=== PATIENT | female | born 1960 | race Caucasian/White ===

== ENCOUNTER 2017-08-11 14:00 | Outpatient (CLI) | payer BC ==
--- NOTE | 2017-08-12 11:50 | XRAY Report ---
RIGHT SHOULDER, THREE VIEWS: 08/11/2017 HISTORY: Fall several weeks ago, pain. Three views of the right shoulder interpreted without comparisons. There is no evidence of fracture, bone destruction, malalignment, soft tissue calcification or other abnormality. Included portions o f the right hemithorax are unremarkable. IMPRESSION: NEGATIVE THREE VIEW RIGHT SHOULDER. JOB #: [id number] EXT JOB #:[id number]
== END 2017-08-11 14:01 | disposition home or self-care (01) ==
LOC: DI 14:00
PROVIDERS: ATTEND Internal Medicine
DX: M25.511 Pain in right shoulder (principal)

== ENCOUNTER 2017-09-13 11:01 | Outpatient (CLI) | payer BC ==
[2017-09-13 12:26] LABS: BASOPHILS % (AUTO) 0.4 %; EOSINOPHILS # (AUTO) 0.1 10^3/uL (0.0-0.7); EOSINOPHILS % (AUTO) 1.5 %; HGB - HEMOGLOBIN 11.8 g/dL (12.0-16.0); LYMPHOCYTES # (AUTO) 1.4 10^3/uL (1.5-3.5); LYMPHOCYTES % (AUTO) 20.7 %; MEAN CORPUSCULAR HEMOGLOBIN 31.6 pg (27.0-31.0); MEAN CORPUSCULAR HGB CONC 33.8 g/dL (32.0-36.0); MEAN CORPUSCULAR VOLUME 93.2 fL (81.0-99.0); MEAN PLATELET VOLUME 8.5 fL (7.9-10.8); MONOCYTES # (AUTO) 0.3 10^3/uL (0.0-1.0); NEUTROPHILS % (AUTO) 73.4 %; PLT - PLATELET COUNT 274 10^3/uL (130-450); RED BLOOD COUNT 3.74 10^6/uL (4.20-5.40); RED CELL DISTRIBUTION WIDTH 14.5 % (12.0-15.0); WHITE BLOOD COUNT 6.8 x10^3/uL (4.8-10.8)
[2017-09-13 12:34] LABS: CHOL/HDL RATIO 5.2 (<4.4); CHOLESTEROL 196 mg/dL; GLUCOSE 92 mg/dL (70-100); HDL CHOLESTEROL 38 mg/dL; LDL CHOLESTEROL,CALCULATED 136 mg/dL; LDL/HDL RATIO 3.6 (<4.4); VLDL CHOLESTEROL 22 mg/dL
[2017-09-13 12:40] LABS: HB2 TOTAL 12.6 g/dL; HEMOGLOBIN A1C 0.44 g/dL; HEMOGLOBIN A1C % 5.3 % (4.6-6.2)
== END 2017-09-13 11:02 | disposition home or self-care (01) ==
LOC: LAB 11:01
PROVIDERS: ATTEND Obstetrics & Gynecology
DX: Z13.0 Encounter for screening for diseases of the blood and blood-forming organs and certain disorders involving the immune mechanism (principal); Z13.220 Encounter for screening for lipoid disorders; N92.1 Excessive and frequent menstruation with irregular cycle
CPT/HCPCS: 36415; 80061; 81599; 82627; 82947; 83036; 83721; 84402; 85025

== ENCOUNTER 2017-09-16 15:07 | Outpatient (CLI) | payer BC ==
--- NOTE | 2017-09-17 11:51 | Ultrasound Report ---
DATE OF SERVICE: 09/16/2017 PELVIC ULTRASOUND: 09/16/2017 CLINICAL INDICATION: Excessive menstruation. TECHNIQUE: Transabdominal pelvic ultrasound performed for global evaluation. Transvaginal pelvic ultrasound performed for detailed evaluation. Real-time scanning performed and static images obtained. FINDINGS: The uterus is anteverted, measuring 9.1 x 5.0 x 4.2 cm. The endometrial echo complex measures 8 mm, and there is an echogenic 1.5 x 0.8 x 0.6 cm nodule with vascularity within the endometrium, suspicious for a polyp. An 1 cm fundal intramural calcification is noted, compatible with a degenerated fibroid. The right ovary measures 3.7 x 1.8 x 1.8 cm, and demonstrates a follicle. The left ovary measures 2.4 x 1.5 x 1.4 cm, and appears unremarkable. No free fluid is present. IMPRESSION: LIKELY ENDOMETRIAL POLYP. TD: 09/17/2017 12:50
== END 2017-09-16 15:08 | disposition home or self-care (01) ==
LOC: DI 15:07
PROVIDERS: ATTEND Obstetrics & Gynecology
DX: N92.1 Excessive and frequent menstruation with irregular cycle (principal)
CPT/HCPCS: 76830; 76856

== ENCOUNTER 2017-10-12 14:50 | Outpatient (CLI) | payer BC ==
--- NOTE | 2017-10-13 10:23 | DEXA Report ---
DEXA SCAN: 10/12/2017 CLINICAL INDICATION: Postmenopausal. TECHNIQUE: Dual energy x-ray absorptiometry (DXA) was performed on a [email or web address] system. Regions measured are the AP spine, femoral neck, and, if needed, forearm. COMPARISON: None. In accordance with the International Society for Clinical Densitometry (ISCD) guidelines, data from previous exams may be reanalyzed using current recommendations and techniques. This is done to allow a more accurate basis for comparison with the current study. FINDINGS: The data for the lumbar spine is as follows: REGION BMD (g/cm/cm) T-SCORE Z-SCORE L1 --- --- --- L2 1.088 -0.9 -1.2 L3 1.205 0.0 -0.2 L4 1.161 -0.3 -0.6 TOTAL L2-L4 1.152 -0.4 -0.7 NOTE: All evaluable vertebrae are used for classification. The data for the hip is as follows: REGION BMD (g/cm/cm) T-SCORE Z-SCORE Neck 1.040 0.0 0.3 TOTAL 1.106 0.8 0.7 NOTE: The femoral neck or total proximal femur, whichever is lowest, is used for classification. IMPRESSION: THE WHO CLASSIFICATION BASED ON THE INTERNATIONAL REFERENCE STANDARD IS NORMAL. THE FRACTURE RISK IS NOT INCREASED. RECOMMENDATION: Patients with diagnosis of osteoporosis or osteopenia should have regular bone mineral density assessment. For those eligible for Medicare, routine testing is allowed once every 2 years. Testing frequency can be increased for patients who have rapidly progressing disease or for those who are receiving medical therapy to restore bone mass. COMMENT: World Health Organization (WHO) definitions for osteoporosis and osteopenia: NORMAL BMD: T-score at 1.0 or higher, fracture risk is low. OSTEOPENIA BMD: T-score between 1.0 and -2.5, fracture risk is increased. OSTEOPOROSIS BMD: T-score at 2.5 or lower, fracture risk high. National Osteoporosis Foundation recommends: 1. Obtain adequate dietary calcium (at least 1200 mg per day) and vitamin D (400 -800 international units per day). 2. Participate, as appropriate, in regular weightbearing and muscle- strengthening exercise. 3. Avoid tobacco use and reduce alcohol and caffeine intake. 4. For more detailed information see the website at www.NOF.org. TD: 10/13/2017 09:16 JOSEF
== END 2017-10-12 14:51 | disposition home or self-care (01) ==
LOC: DI 14:50
PROVIDERS: ATTEND Internal Medicine
DX: Z13.820 Encounter for screening for osteoporosis (principal)
CPT/HCPCS: 77080

== ENCOUNTER 2017-10-12 14:51 | Outpatient (CLI) | payer BC ==
--- NOTE | 2017-10-13 17:04 | Mammography Report ---
DIGITAL SCREENING MAMMOGRAM: 10/12/2017 CLINICAL INDICATION: A 57-year-old with a history of late childbearing, for screening. COMPARISON: 07/2016, 01/2016, 04/2008. TECHNIQUE: Routine CC and MLO projections were obtained of the breasts. FINDINGS: Scattered fibroglandular tissue is present within the breasts. There are no dominant masses, suspicious microcalcifications, or secondary signs of malignancy. In comparison to the previous studies, there are no significant changes. ASSESSMENT: NO MAMMOGRAPHIC EVIDENCE OF MALIGNANCY. NO SIGNIFICANT INTERVAL CHANGES. RECOMMENDATION: Screening mammography is recommended annually. BIRADS category 1 - negative. STANDARD QUALIFYING STATEMENTS: 1. This examination was reviewed with the aid of Computed-Aided Detection (CAD). 2. A negative or benign imaging report should not delay biopsy if clinically suspicious findings are present. Consider surgical consultation if warranted. More than 5% of cancers are not identified by imaging. 3. Dense breasts may obscure an underlying neoplasm. TD: 10/13/2017 17:02
== END 2017-10-12 14:52 | disposition home or self-care (01) ==
LOC: DI 14:51
PROVIDERS: ATTEND Internal Medicine
DX: Z12.31 Encounter for screening mammogram for malignant neoplasm of breast (principal)
CPT/HCPCS: 77067

== ENCOUNTER 2018-03-14 14:13 | Outpatient (CLI) | payer BC ==
[2018-03-14 14:31] LABS: BASOPHILS # (AUTO) 0.1 10^3/uL (0.0-0.1); BASOPHILS % (AUTO) 0.8 %; EOSINOPHILS # (AUTO) 0.1 10^3/uL (0.0-0.7); EOSINOPHILS % (AUTO) 1.2 %; HGB - HEMOGLOBIN 12.8 g/dL (12.0-16.0); LYMPHOCYTES % (AUTO) 24.3 %; MEAN CORPUSCULAR HEMOGLOBIN 31.8 pg (27.0-31.0); MEAN CORPUSCULAR HGB CONC 33.2 g/dL (32.0-36.0); MEAN CORPUSCULAR VOLUME 95.9 fL (81.0-99.0); MEAN PLATELET VOLUME 8.4 fL (7.9-10.8); MONOCYTES # (AUTO) 0.4 10^3/uL (0.0-1.0); MONOCYTES % (AUTO) 4.2 %; NEUTROPHILS # (AUTO) 5.9 10^3/uL (1.5-6.6); NEUTROPHILS % (AUTO) 69.5 %; PLT - PLATELET COUNT 316 10^3/uL (130-450); RED BLOOD COUNT 4.01 10^6/uL (4.20-5.40); WHITE BLOOD COUNT 8.4 x10^3/uL (4.8-10.8)
[2018-03-14 14:32] LABS: BILIRUBIN,URINE NEGATIVE (NEGATIVE); GLUCOSE, URINE (UA) NEGATIVE (NEGATIVE); KETONES,URINE (UA) NEGATIVE (NEGATIVE); LEUKOCYTE ESTERASE, URINE SMALL (NEGATIVE); NITRITE,URINE NEGATIVE (NEGATIVE); OCCULT BLOOD,URINE NEGATIVE (NEGATIVE); PH,URINE 6.5 PH (5.0-7.5); PROTEIN,URINE NEGATIVE (NEGATIVE); UROBILINOGEN,URINE 0.2 (NORMAL) E.U./dL (NORMAL)
[2018-03-14 14:35] LABS: CLARITY,URINE CLEAR (CLEAR)
[2018-03-14 14:41] LABS: ALBUMIN 4.1 g/dL (3.2-5.5); ALBUMIN/GLOBULIN RATIO 1.2 (1.0-2.2); BILIRUBIN,TOTAL 0.6 mg/dL (0.2-1.0); CALCIUM 8.8 mg/dL (8.5-10.3); CREATININE 0.6 mg/dL (0.4-1.0); TOTAL PROTEIN 7.5 g/dL (6.7-8.2)
== END 2018-03-14 14:14 | disposition home or self-care (01) ==
LOC: LAB 14:13
PROVIDERS: ATTEND Obstetrics & Gynecology
DX: Z01.812 Encounter for preprocedural laboratory examination (principal); N95.0 Postmenopausal bleeding
CPT/HCPCS: 36415; 80053; 81003; 85025

== ENCOUNTER 2018-03-16 10:25 | Day surgery (SDC) | payer BC ==
--- NOTE | 2018-03-14 15:10 | PREOP HISTORY & PHYSICAL ---
DATE OF SERVICE: 03/14/2018 Physician: Richie Willingham MD PREOPERATIVE DIAGNOSES 1. Thickened endometrium with postmenopausal bleeding. 2. Nondiagnostic endometrial biopsy. INTENDED PROCEDURE: Hysteroscopy with MyoSure excision of presumed polyp. HISTORY OF PRESENT ILLNESS: Patient is a 57-year-old , 3, para 2-0-1-2, woman who never feels like she ever sees menstruating. She continues to have unscheduled uterine bleeding. She is morbidly obese with a history of gestational diabetes and findings suggestive of androgen excess and probable insulin resistance. She is at increased risk of hyperplastic or malignant changes of the endometrium. Endometrial biopsy was nondiagnostic. Tissue diagnosis is required. Ultrasound documents an 8 mm stripe with an 8 mm complex and increased vascularity. A polyp is first and differential diagnosis. Additionally, there is a 1 cm intramural calcified fibroid. There is no ovarian pathology. Her last Pap smear was in September 2017 and was non-dysplastic with negative HPV. PAST MEDICAL HISTORY: Includes Benjamin's disease. PAST SURGICAL HISTORY: Tonsillectomy, 1967. ALLERGIES: NO KNOWN DRUG ALLERGIES. MEDICATIONS: Reference medical history. FAMILY HISTORY: No gynecologic malignancy noted. Positive for hypertension and CAD. SOCIAL HISTORY: . No organized exercise and diet regimen; no alcohol consumption, drug consumption, or smoking. OCCUPATION: Currently a housewife, but a Bachelor's in fine arts and graphic design. REVIEW OF SYSTEMS: No recent illnesses, fevers, or chills. No easy bleeding tendencies. PHYSICAL EXAMINATION GENERAL: Obese, cooperative. HEENT: Supple neck. Currently no thyromegaly, tenderness, or nodularity. LUNGS: Clear. HEART: Cardiac exam regular. No murmur, no gallop. ABDOMEN: Obese with pannus. BREASTS: Deferred. EXTERNAL GENITALIA: Male hair distribution. No lesions. VAGINA: Grade 1- cystorectocele. No incontinence on cough. CERVIX: No cervicitis or cervical motion tenderness. UTERUS: Difficult to evaluate due to body habitus, but felt to be enlarged, nontender. ADNEXA: Difficult to evaluate due to body habitus, nontender. No enlargement suspect. MUSCULOSKELETAL: Moves all 4 extremities well. No limitations in range of motion. NEUROLOGIC: Grossly intact. Cranial nerves intact. SKIN: No obvious open lesions. PSYCHIATRIC: Cooperative, not anxious or appearing depressed. PRE-OP LABORATORY DATA: Pending. ASSESSMENT: Patient is a 57-year-old woman who has had longstanding postmenopausal bleeding, most likely due to estrogen excess. Her endometrium is thickened to 8+ mm. There is uncertainty if there is a polyp or possibly even hyperplasia. Tissue diagnosis is required. Initial EMB is nondiagnostic. PLAN: Hysteroscopy with possible MyoSure resection of polyp. We discussed risks, benefits, and alternatives. Patient is aware of surgical risk of blood loss, transfusion, infection, perforation, and fluid overload. All questions were answered. Preoperative informed consent paperwork signed. TD: 03/14/2018 13:43
[2018-03-16] MEDS ORDERED: LACTATED RINGERS 1,000 ML IV ONE (10:56)
[2018-03-16] MEDS ORDERED: ONDANSETRON 4 MG/2 ML VIAL IVP ONE (13:30)
[2018-03-16] MEDS ORDERED: KETOROLAC 30 MG/ML VIAL IVP ONE (13:30)
[2018-03-16] MEDS ORDERED: PROPOFOL 200 MG/20 ML VIAL IVP ONE (13:30)
[2018-03-16] MEDS ORDERED: fentaNYL 100 MCG/2 ML VIAL IVP ONE (13:30)
[2018-03-16] MEDS ORDERED: MIDAZOLAM 2 MG/2 ML VIAL IVP ONE (13:30)
[2018-03-16] MEDS ORDERED: DEXAMETHASONE 4 MG/ML VIAL IVP ONE (13:30)
--- NOTE | 2018-03-16 13:53 | OPERATIVE REPORT ---
Operative Report - General Procedure Date: 03/16/18 Pre-Op Diagnosis: Endometrial thickening, probable polypoid growth; nondiagnostic endometrial Procedure Performed: Hysteroscopy; myomectomy with myossure; Biopsyof endometrial tissue Post Op Diagnosis: Same as above; await pathology - Procedure Note Primary Surgeon: Richie Willingham MD Anesthesia Technique: General ET tube (Giuseppe Napier, certified nurse manager home healthcare) Pathology: Morcellated myoma; endometrial tissue IV Fluids (mL): 1,000 Estimated Blood Loss (mL): 10 Urine Output (mL): 100 Drain/Tube Type: Other (None; vaginal packing) Complications: None
[2018-03-16] MEDS ORDERED: HYDROcod/ACETAM 5/325 MG TABLET ONE (14:51)
[2018-03-16 16:20] VITALS: BP 127/77
--- NOTE | 2018-03-16 17:07 | OPERATIVE REPORT ---
DATE OF SERVICE: 03/16/2018 Physician: Richie Willingham MD PREOPERATIVE DIAGNOSIS: Endometrial thickening, probable polyp or intracavitary myoma; nondiagnostic endometrial biopsy; evidence of androgen excess/hirsutism; rectocele. POSTOPERATIVE DIAGNOSIS: Endometrial thickening, probable polyp or intracavitary myoma; nondiagnostic endometrial biopsy; evidence of androgen excess/hirsutism; rectocele. Await pathology. PROCEDURE: Hysteroscopy; myomectomy/polypectomy with MyoSure device; biopsy/ denuding of endometrial tissue with MyoSure. SURGEON: Richie Willingham MD, FACOG ANESTHESIA: Christianne Napier, certified nurse jailkeeper. ANESTHESIA TYPE: General with ET tube placed. PATHOLOGY: Morcellated myoma; fragments of endometrium. IV FLUIDS: 1000. ESTIMATED BLOOD LOSS: 10. URINE OUTPUT: Approximately 100, note patient did not have Donato but was catheterized 100 mL prior to the beginning of the case. DRAINS: None, but vaginal packing in place. COMPLICATIONS: None. FINDINGS: Exam under anesthesia finds exuberant hair growth and male hair patterning of the external genitalia and abdomen. The vagina has a grade 1+ rectocele and a smaller cystocele. There is evidence of uterine mobility. Uterus palpates globular and fairly regular. Adnexa do not have any masses and the ovaries are not palpable due to body habitus. Hysteroscopic examination finds the uterine cavity with a 3 x 4 x 1 cm pedunculated fibroid, possible polyp. Additionally, there is a hyperplastic tissue in the right cornual area, anterior fundus, and posterior fundus. All these areas were sampled with MyoSure. TECHNIQUE: The awake patient was brought to the operating room and placed on the table in the supine position. She was prepped and draped in the customary sterile fashion. She was moved to low dorsal lithotomy position. Timeout briefing was done per protocol. Exam under anesthesia was conducted and the patient was straight-catheterized of clear urine. The anterior cervical lip was grasped with single-tooth tenaculum. Endocervical canal was uneventfully dilated to Hegar size 6. The video hysteroscope was primed and calibrated. The 30-degree hysteroscope then was uneventfully guided through the endocervical canal and into the cavity. Photographs were taken. First, we performed myomectomy using the extended MyoSure. The intracavitary myoma was systematically shaven down to the stalk. The myoma was removed in total. Next, a systematic sampling/biopsy was conducted with MyoSure. All the areas of hyperplasia were denuded using the MyoSure to arrive at an appropriate diagnosis. Total fluid deficit was 700. All instruments were removed from the uterus. A 1/4-inch iodoform packing was then placed into the uterus and vagina. Bleeding was well controlled. All instruments were removed. All sponge, needle and instrument counts were confirmed as correct. The patient was uneventfully awakened and taken to the recovery room in good condition. She had her intraoperative photos reviewed. Warning sign and callback instructions were reviewed. DISCHARGE: The patient was discharged on: 1. Motrin 600 q.6h. 2. [place] 325/5 one tab q.4h. p.r.n. breakthrough pain. 3. Colace 250 b.i.d. Followup will be in 2 weeks. TD: 03/16/2018 14:17 [facility]
== END 2018-03-16 10:26 | disposition home or self-care (01) ==
LOC: SDS 10:25
PROVIDERS: ATTEND Obstetrics & Gynecology
PROC: 0UDB8ZX Extraction of Endometrium, Via Natural or Artificial Opening Endoscopic, Diagnostic (ICD-10-PCS; principal; 2018-03-16 11:45)
DX: N84.0 Polyp of corpus uteri (principal); E66.01 Morbid (severe) obesity due to excess calories; E06.3 Autoimmune thyroiditis; N81.10 Cystocele, unspecified; N81.6 Rectocele
CPT/HCPCS: 58558; A9270; J7120

== ENCOUNTER 2018-03-28 14:52 | Outpatient (CLI) | payer BC ==
[2018-03-28 16:09] LABS: T4 (THYROXINE) 8.37 ug/dL (6.09-12.23)
[2018-03-28 16:13] LABS: THYROID STIMULATING HORMONE 2.06 uIU/mL (0.34-5.60)
[2018-03-28 16:15] LABS: FREE T4 (FREE THYROXINE) 0.83 ng/dL (0.58-1.64)
[2018-03-28 16:41] LABS: FOLLICLE STIMULATING HORMONE 12.32 mIU/mL
== END 2018-03-28 14:53 | disposition home or self-care (01) ==
LOC: LAB 14:52
PROVIDERS: ATTEND Obstetrics & Gynecology
DX: L68.0 Hirsutism (principal)
CPT/HCPCS: 36415; 82627; 83001; 84436; 84439; 84443

== ENCOUNTER 2019-02-20 15:44 | Outpatient (CLI) | payer BC ==
--- NOTE | 2019-02-21 12:26 | Ultrasound Report ---
Reason: ABNORMAL PERIMENOPAUSAL BLEEDING Procedure Date: 02/20/2019 Accession Number: [id number] / [id number] Procedure: US - Pelvic Complete CPT Code: FULL RESULT: EXAM: PELVIC ULTRASOUND EXAM DATE: 02/20/2019 04:13 PM. CLINICAL HISTORY: Abnormal perimenopausal bleeding. COMPARISON: None. TECHNIQUE: Realtime transabdominal pelvic scan performed to identify the uterus and adnexa and as an overview of other pelvic structures, with static image documentation. FINDINGS: Uterus: 9.3 x 4.8 x 5.6 cm, volume 131 cc. Anteverted position. Normal overall size and echotexture. Masses: None. Endometrium: 3 mm. Limited evaluation of the endometrium due to transabdominal technique only. Color Doppler is suggestive of abnormal vascularity near the fundal portion of the endometrium as seen on image 10. Cervix: Unremarkable. The right and left ovary are not seen. Free Fluid: None. Other: None. IMPRESSION: Limited examination with suggestion of abnormal vascularity in the fundal region of the endometrium. Recommendation: Consideration for transvaginal ultrasound examination versus further clinical gynecologic workup. [facility]
== END 2019-02-20 15:45 | disposition home or self-care (01) ==
LOC: DI 15:44
PROVIDERS: ATTEND Obstetrics & Gynecology
DX: N92.4 Excessive bleeding in the premenopausal period (principal)
CPT/HCPCS: 76856